=== PATIENT | male | born 1970 | race Caucasian/White ===

== ENCOUNTER 2016-11-30 17:28 | Emergency (ER) | payer BC ==
[2016-11-30] MEDS ORDERED: TETRACAINE 0.5% - 2 ML EYE DROPS EACH EYE ONE (17:43)
[2016-11-30] MEDS ORDERED: FLUORESCEIN 1 MG EYE STRIP RIGHT EYE ONE (17:45)
[2016-11-30] MEDS ORDERED: FLUORESCEIN 1 MG EYE STRIP ONE (17:46)
[2016-11-30] MEDS ORDERED: TETRACAINE 0.5% - 2 ML EYE DROPS ONE (17:47)
[2016-11-30 17:53] VITALS: RESP 16; TEMP 97.2
[2016-11-30] MEDS ORDERED: TOBRAMYCIN 0.3% - 5 ML EYE DROPS EACH EYE ONE (17:55)
--- NOTE | 2016-11-30 18:00 | PDOC ---
Eye Complaint HPI - General Chief Complaint: Eye Problem / Injury Stated Complaint: redness, pain right eye Date Seen by Provider: 11/30/16 Time Seen by Provider: 17:54 Source: POSITIVE: Patient Exam Limitations: POSITIVE: No limitations Nurse's Notes Reviewed & Considered: Yes - History of Present Illness Initial Comments: Patient comes in today complaining of right eye pain. 2 days ago patient was working in his yard developed itching watery eye yesterday it continued to increase with symptoms and became red and injected conjunctivae. He saw a provider at [facility] yesterday was started on sulfacetamide. He comes in today with increasing conjunctival redness, irritation, watery eye. He denies any fever chills sweats, nausea vomiting or diarrhea, no rashes. Have you received a tetanus shot in the past 10 years?: Yes Location: Right Eye Timing: REPORTS: Abrupt Duration: >24 hours Severity: Moderate Quality: REPORTS: Burning, "Pain", Itching Recent Injury: REPORTS: Possibly Associated Symptoms: REPORTS: Pain, Burning, Itching, Sensitivity to Light, Redness, Foreign Body Sensation Context: REPORTS: Eyes Washed at Scene, Other (Weekend and dust exposure.) Location at Time of Onset: REPORTS: Home Concurrent Injuries: REPORTS: Other (None) Modifying Factors: REPORTS: Nothing Exacerbates, Nothing Relieves Similar Symptoms Previously: No Recent Care Received: REPORTS: Recently Seen, Treated by MD Any Prior Injuries Related to Current Complaint?: No - Patient Home Medications Home Medications: Home Medications Sildenafil Citrate [Viagra] 1 tab PO PRN #9 tab 08/15/15 Alprazolam [Xanax] 1 tab PO PRN #10 tab 03/29/16 Escitalopram Oxalate [Lexapro] 10 mg PO DAILY #30 tab 09/30/16 Atorvastatin Calcium [Lipitor] 1 tab PO DAILY #30 tab 11/04/16 - Patient Allergies Allergies/Adverse Reactions: Allergies Allergy/AdvReac Type Severity Reaction Status Date / Time No Known Drug Allergies Allergy NOT Verified 11/30/16 17:43 APPLICABLE Past Medical History - heen HEENT History: Denies History, Other (please comment) Additional HEENT History: tonsillectomy Cardiovascular History: Hyperlipidemia Respiratory History: Other (please comment) Additional Respiratory History: environmental allergies. sinus infection. sinus surgery Gastrointestinal History: Other (please comment) Additional Gastrointestinal History: hernia repair Genitourinary History: Denies History Endocrine History: Denies History Musculoskeletal History: Back Pain, Other (please comment) Additional Musculoskeletal History: back surgery Neurological History: Denies History Blood Disorders: Denies History Psychiatric History: Denies History History of Sexually Transmitted Diseases: No Cancer History: Denies History In Past Year Been Physically Harmed or Verbally Threatened: No History of MDRO: No History of Other Communicable Diseases: No Tobacco Use: Never Smoker Alcohol Use: Rarely Substance Use Type: None Previous Surgical History: Yes Type / Date of Surgery: sinus. back. tonsils. hernia Anesthesia Reactions: No Significant Family History: No pertinent family hx ROS - Limitations ROS Limitations: No Limitations Constitution: REPORTS: Denies Symptoms Cardiovascular: REPORTS: Denies Cardiac Symptoms Respiratory: REPORTS: Denies Resp Symptoms Neurological: REPORTS: Denies Neuro Symptoms Gastrointestinal: REPORTS: Denies GI Symptoms Endocrine: REPORTS: Denies Symptoms Musculoskeletal: REPORTS: Denies MS Symptoms Genitourinary: REPORTS: Denies Symptoms Eyes: REPORTS: Eye Pain, Red Eyes, Itching Eyes ENT: REPORTS: Denies Symptoms Skin: REPORTS: Denies Skin Symptoms Lympathic: REPORTS: Denies Lympathic Symptoms Immunologic: POSITIVE: Denies Symptoms Psychiatric: POSITIVE: Denies Psych Symptoms Eye Complaint Physical Exam - General Appearance General Appearance: POSITIVE: Alert, Cooperative, No Evidence of Trauma - Visual Acuity / Pupil Size Pupil Size: 4 mm: Bilateral - HEENT Head / Face: POSITIVE: Atraumatic, Normal Inspection, No Facial Swelling Eyes: POSITIVE: PERRL, EOM's Intact, Eyelids Uninjured, No Nystagmus, No Globe Trauma, Sclera Normal, Conjunctivae (red), Corneal Abrasion, Fluorescein Dye Uptake (6 o'clock position consistent with abrasion on the cornea.) Ears: POSITIVE: Ears Normal Inspection, Auricle Normal Nose: POSITIVE: Inspection Normal, No Apparent Trauma, Nares Normal, No CSF Leak Oropharynx: POSITIVE: External Inspection Nml, Pharynx Inspect. Nml, Airway Intact, Voice Normal, Moist Mucous Membranes, Lips Normal, No Drooling - Skin Skin: POSITIVE: Normal Color, No Skin Rash Eye Complaint Progress - Patient's Progress Status: POSITIVE: Improved MDM / ED Course: Patient was examined. He received tetracaine enforcing dye to his right eye. Slit lamp examination shows a very small corneal abrasion at the 6 o'clock position on the outer margin of the iris. Inversion of his upper eyelid shows no foreign bodies present. Next Assessment: Corneal abrasion with conjunctivitis. Plan: Discontinue sulfacetamide. Begin tobramycin eyedrops 2 drops every 6 hours. Follow-up with ophthalmology. - Consult Counseled: POSITIVE: Patient, RE: DX, RE: Need for F/U Patient Care Time - Estimated PCT Patient Care Time (In Minutes): 10 Vital Signs - Recent Vital Signs Vital Signs: Vital Signs (Last 8 hours) Temp Pulse Resp BP Pulse Ox 11/30/16 17:36 97.2 F 67 16 103/82 94 Discharge Clinical Impression: Corneal abrasion, Conjunctivitis Condition: Stable Patient Instructions Given at Discharge: Corneal Abrasion (ED), Conjunctivitis (ED)
== END 2016-11-30 18:18 | disposition home or self-care (01) ==
LOC: ER 17:28
DX: S05.01XA Injury of conjunctiva and corneal abrasion without foreign body, right eye, initial encounter (principal); H10.31 Unspecified acute conjunctivitis, right eye
CPT/HCPCS: 99282

== ENCOUNTER 2017-09-08 20:42 | Observation (INO) ==
[2017-09-08] MEDS ORDERED: Sodium Chloride 0.9% 1,000 ML PRIMARY IV ONE (20:56)
[2017-09-08] MEDS ORDERED: NORMAL SALINE 10 ML SYRINGE FLUSH IVP PRN ×2 (20:56→22:07)
[2017-09-08 21:01] LABS: BASOPHILS # (AUTO) 0.03 10*3/UL; BASOPHILS % (AUTO) 0.3 % (0-1); EOSINOPHILS # (AUTO) 0.27 10*3/UL; EOSINOPHILS % (AUTO) 2.7 % (0-8); Hematocrit [HCT] 46.5 % (42.0-52.0); Hemoglobin [HGB] 16.3 g/dL (14.0-18.0); LYMPHOCYTES # (AUTO) 2.68 10*3/uL; MEAN CORPUSCULAR HEMOGLOBIN 29.7 PG (27-31); MEAN CORPUSCULAR HGB CONC 35.1 g/dL (33-37); MEAN CORPUSCULAR VOLUME 84.7 FL (80-90); MEAN PLATELET VOLUME 11.8 FL (7.4-12.2); MONOCYTES # (AUTO) 1.47 10*3/UL (0.3-0.8); MONOCYTES % (AUTO) 14.9 % (5-15); NEUTROPHILS # (AUTO) 5.35 10*3/UL; NEUTROPHILS % (AUTO) 54.5 % (50-80); RED BLOOD COUNT 5.49 10^6/uL (4.70-6.10)
[2017-09-08 21:02] LABS: PLATELET MORPHOLOGY COMMENT NORMAL MORPHOLOGY (NORM); RBC MORPHOLOGY COMMENT NORMAL MORPHOLOGY (NORM); WBC MORPHOLOGY COMMENT NORMAL MORPHOLOGY (NORM)
[2017-09-08 21:07] LABS: BLOOD UREA NITROGEN 14 mg/dL (7-22); BUN/CREATININE RATIO 15.55 (6-20); SERUM ALBUMIN 4.2 g/dL (3.5-4.8)
--- NOTE | 2017-09-08 21:07 | EKG ---
[address] [address] Measurements Intervals [place] Rate: 56 P: 20 AR: 155 QRS: 12 QRSD: 83 T: 30 QT: 392 QTc: 384 Interpretive Statements SINUS BRADYCARDIA NONSPECIFIC T-WAVE ABNORMALITY No previous ECG available for comparison Electronically Signed On 09-09-17 18:06:36 MST by Tejas Butler [email or web address]
--- NOTE | 2017-09-08 21:58 | PDOC ---
Chest Pain HPI - General Chief Complaint: Chest Pain Stated Complaint: CHEST PAIN Date Seen by Provider: 09/08/17 Time Seen by Provider: 20:45 Source: Patient, EMS Exam Limitations: POSITIVE: No limitations Treatment Prior to Arrival: REPORTS: Nitroglycerin, Oxygen, Aspirin Nurse's Notes Reviewed & Considered: Yes EMS Report Reviewed & Considered: Verbal - History of Present Illness Initial Comments: The patient is a 47-year-old male who arrives by ambulance from one of the [facility]. 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 He states he has some history of GERD but never had persistent pain like this. His pain was in the substernal area and radiated into the right subscapular area. Patient contacted the [facility] ambulance service, who administered 4 baby aspirin and some nitroglycerin and oxygen. The [facility] ambulance service then contacted the [place] ambulance service, who intercepted them at [facility]. Patient states that he achieved good relief following nitroglycerin and aspirin as above. Upon presentation to the emergency room patient's pain has resolved. Patient rated the intensity of his pain as a 9 on a scale of 10. Patient states his father at age 52 of a myocardial infarction. Patient does not smoke. He has a history of hypercholesterolemia and depression. The [place] paramedics telemetered an electrocardiogram from the field prior to arrival, and this electrocardiogram was felt to be normal. 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) Severity: Severe Gone now, lasted (minutes):: 75 Context: REPORTS: Other (At work) Quality: REPORTS: Aching, "Pain" Radiation: REPORTS: Shoulder (R) Associated Symptoms: DENIES: Nausea, Vomiting, Diaphoresis, Shortness of Breath , Hurts to Breathe, Productive Cough (blood), Productive Cough (sputum), Weakness, Dizziness Modifying Factors: improves with: None Reported, Nitroglycerin (Relieved after taking nitroglycerin per paramedics), Oxygen, Aspirin Similar Symptoms Previously: No Recently seen/treated/hospitalized: No Any Prior Injuries Related to Current Complaint?: No - Patient Home Medications Home Medications: Home Medications Ibuprofen 800 mg PO TID #60 tab 03/19/17 sildenafil 100 mg tablet 100 mg PO PRN #9 tab 05/13/17 atorvastatin 20 mg tablet 20 mg PO DAILY #90 tab 06/04/17 escitalopram 10 mg tablet 10 mg PO DAILY #90 tab 06/04/17 hydrocodone 5 mg-acetaminophen 300 mg tablet 1 tab PO Q4H PRN #20 tab 06/04/17 cyclobenzaprine 10 mg tablet 10 mg PO Q8H #20 tab 07/15/17 - Patient Allergies Allergies/Adverse Reactions: Allergies 3 Allergy/AdvReac Type Severity Reaction Status Date / Time No Known Drug Allergies Allergy NOT Verified 09/08/17 20:44 APPLICABLE Past Medical History - heen HEENT History: Denies History, Other (please comment) Additional HEENT History: tonsillectomy Cardiovascular History: Hyperlipidemia Respiratory History: Other (please comment) Additional Respiratory History: environmental allergies. sinus infection. sinus surgery Gastrointestinal History: Other (please comment) Additional Gastrointestinal History: hernia repair Genitourinary History: Denies History Endocrine History: Denies History Musculoskeletal History: Back Pain, Other (please comment) Additional Musculoskeletal History: back surgery Neurological History: Denies History Blood Disorders: Denies History Psychiatric History: Denies History History of Sexually Transmitted Diseases: No Cancer History: Denies History History of MDRO: No History of Other Communicable Diseases: No Alcohol Use: Rarely In the Past 12 Months, Have Used or Abuse Any Substance: None Previous Surgical History: Yes Type / Date of Surgery: sinus. back. tonsils. hernia Anesthesia Reactions: No Significant Family History: No pertinent family hx Past Medical History Reviewed: Reviewed - No Changes ROS - Limitations ROS Limitations: No Limitations Constitution: REPORTS: Denies Symptoms Cardiovascular: REPORTS: Chest Pain Respiratory: REPORTS: Denies Resp Symptoms Neurological: REPORTS: Denies Neuro Symptoms Gastrointestinal: REPORTS: Denies GI Symptoms Endocrine: REPORTS: Denies Symptoms Musculoskeletal: REPORTS: Denies MS Symptoms Genitourinary: REPORTS: Denies Symptoms Eyes: REPORTS: Denies Symptoms ENT: REPORTS: Denies Symptoms Skin: REPORTS: Denies Skin Symptoms Lympathic: REPORTS: Denies Lympathic Symptoms Immunologic: POSITIVE: Denies Symptoms Psychiatric: POSITIVE: Denies Psych Symptoms Chest Pain PE - General Appearance General Appearance: REPORTS: Alert, Cooperative, No Acute Distress, No Evidence of Trauma - HEENT HEENT: POSITIVE: Head Inspection Nml, Eyes Inspection Nml, Ears Inspection Nml, Nose Inspection Nml, Oral/Dental Inspect. Nml, Pharynx Inspect. Nml, PERRL, EOMI - Neck Neck: REPORTS: Normal Inspection, No Carotid Bruit - Respiratory Respiratory: REPORTS: No Respiratory Distress, Breath Sounds Normal, Chest Non- Tender - Cardiovascular Cardiovascular: REPORTS: Regular Rate and Rhythm, Heart Sounds Normal, Equal Pulses, Strong Pulses, No Murmur, No Gallop, No Friction Rub, No JVD Peripheral Pulses: Radial (R): 2+, Radial (L): 2+ - Abdomen Abdomen: Soft: (All Quadrants), Normal Bowel Sounds: (All Quadrants), Denies Tenderness: (All Quadrants), No Splenomegaly: (All Quadrants), No Hepatomegaly: (All Quadrants), No Guarding: (All Quadrants), No Rebound: (All Quadrants), No Palpable Pulse: (All Quadrants), No Palpabale Mass: (All Quadrants), No Distention: (All Quadrants), No Rigidity: (All Quadrants) - Skin Skin: REPORTS: Intact, Normal For Race, Warm, Dry, No Rash - Extremities Extremity: Non-Tender: (All Extremities), Normal ROM: (All Extremities), Normal Inspection: (All Extremities) - Neurological / Psychological Neurological: POSITIVE: Affect Apporpriate, 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 X3, 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 As Tested, Motor Normal, Sensation Normal Images - Complete Complete: 1 - Area described chest pain 2 - Radiation into right subscapular area Chest Pain Progress - Results Reviewed by me Xrays/CTs/US Reviewed by me: Yes Discussed with Radiologist: No Radiology Findings: Portable chest x-ray normal by my interpretation; radiologist interpretation pending Lab Results Reviewed by Me: Yes (d-dimer negative; troponin negative) CBC and BMP: 09/08/17 20:10 09/08/17 20:10 EKG Interpreted/Reviewed By Me:: Yes (normal) EKG Interpretation:: POSITIVE: Normal Sinus Rhythm, Normal Rate, Normal Intervals, Normal Sanders, Normal QRS, Abnormal EKG, Repeat EKG (EKG done in the field and repeat EKG upon arrival to the emergency room compared; both felt to be normal), Previous EKG Reviewed - Patient's Progress Pain Medication Addressed: POSITIVE: Yes (Nitroglycerin as above) School/Work Release Addressed: POSITIVE: Not Applicable Re-Examine Time: 21:45 Re-Examine Comment: Patient advised of his chest x-ray, electrocardiogram and laboratory values. Options for further evaluation and treatment discussed. Patient and quite concerned, and patient does have a strong family history of heart problems. Patient admitted for further evaluation and treatment per hospitalist. Status: POSITIVE: Improved, Re-Examined Quality Measure Initiative: CP/AMI: POSITIVE: EKG, ASA - Consult Consult (If Yes, Name of Consulting MD & Time Called): Yes (Dr. Gray, hospitalist, [id number]) Consulting MD will see pt:: POSITIVE: [facility] [place] Admit Counseled: POSITIVE: Patient, Family, RE: Lab Results, RE: Radiology Results, RE : DX, RE: Need for F/U Patient Care Time - Estimated PCT Patient Care Time (In Minutes): 45 Vital Signs - Recent Vital Signs Vital Signs: Blood pressure 111/65, heart rate 67, respiratory rate 18, temperature 98.6F, oxygen saturation on room air 96%. Discharge Clinical Impression: Chest pain Discharge Disposition: Admit to Inpatient Condition: Good Follow Up With: OH RIVERA FNP [Primary Care Provider] - Date Decision to Admit to Inpatient: 09/08/17 Time Decision to Admit to Inpatient: 21:45
--- NOTE | 2017-09-08 22:01 | DI ---
AP CHEST X-RAY, 09/08/2017 8:56 PM : Clinical History: Chest pain. Previous Exam: 07/15/2017. There is no acute soft tissue or bony abnormality. Heart size is normal. Lungs are clear. Mediastinal structures are normal. There are no pulmonary nodules. Reading: Normal chest x-ray. There has been no significant interval change.
[2017-09-08] MEDS ORDERED: NITROGLYCERIN 0.4 MG SL TAB (BOTTLE OF 3) SL PRN (22:07)
[2017-09-08] MEDS ORDERED: LIDOCAINE W/ SODIUM BICARB 0.5 ML SYR SUBD PRN (22:07)
[2017-09-08] MEDS ORDERED: CALCIUM CARBONATE 500 MG (TUMS) CHEWABLE TABLET PO PRN (22:07)
[2017-09-08] MEDS ORDERED: HYDROcodone-APAP 5 MG -325 MG TABLET PO PRN (22:15)
--- NOTE | 2017-09-08 22:15 | PDOC ---
HPI - History of Present Illness Date of Service: 09/08/17 Time of Service: 10:40 Chief Complaint: Chest pain History of Present Illness: This very pleasant 47-year-old male with a history of hypercholesterolemia and family history of coronary artery disease who presents with acute onset of chest pain at about 6:30 tonight as he was [place] today. He stated it came on suddenly, was substernal, and was pressure-like in sensation. They transferred him via ambulance, gave him 4 aspirins, and nitroglycerin and his pain resolved by the time he got to the emergency room. He's never had anything like this happen before. He denies any nausea, vomiting , or diaphoresis with the pain. He did not have any shortness of breath. He states it was 2-1/2 hours after his last meal. He infrequently gets heartburn, and when he does Tums usually relieves it. He tried antacids tonight without any help. Patient states that he has a positive family history of heart disease , he does not smoke, he has high cholesterol, does not have hypertension and does not have diabetes. Resting EKG showed normal sinus rhythm to sinus bradycardia. There is no positional component to the chest pain. He does not have anxiety. Past Medical History Medical History: 1. Hypercholesterolemia. 2. Depression, well controlled on Lexapro. 3. Occasional back pain with history of back surgery 2. Surgical History: History of back surgery 2. History of sinus surgery. Status post inguinal hernia repair. Status post rotator cuff repair (~2014). Status post tonsillectomy Pertinent Family History: Significant for coronary artery disease, his father had his first heart attack at age 37 and in his 50s. Past Social History: Does not smoke. for over 20 years. Has 2 healthy children. Works at the [employer] near [place]. Does not drink alcohol. Tobacco Use: Never Smoker In the Past 12 Months, Have Used or Abuse Any of the Following Substance: None Alcohol Use: None Medication / Allergies Home Medications: Home Medications 3 Medication Instructions Recorded Confirmed Type Ibuprofen 800 mg PO TID #60 tab 03/19/17 07/15/17 Clinic atorvastatin 20 mg tablet 20 mg PO DAILY #90 tab 06/04/17 09/08/17 Rx escitalopram 10 mg tablet 10 mg PO DAILY #90 tab 06/04/17 09/08/17 Rx cyclobenzaprine 10 mg tablet 10 mg PO Q8H #20 tab 07/15/17 07/15/17 Rx Allergies/Adverse Reactions: Allergies 3 Allergy/AdvReac Type Severity Reaction Status Date / Time No Known Drug Allergies Allergy NOT Verified 09/08/17 20:44 APPLICABLE Review of Systems - Review of Systems All Systems: Reviewed & No Additional Complaints Except as Stated (I did a 12 point review systems and it was negative other than that discussed in history present illness. There are some exceptions noted below.) - Genitourinary Genitourinary: REPORTS: Other (History of kidney stones.) Exam - - Exam: Vital Signs (24 hrs) Temp Pulse Pulse Pulse Resp BP BP 09/08/17 22:15 98 F 62 18 108/56 09/08/17 20:42 98.3 F 67 72 18 120/63 Pulse Ox 09/08/17 22:15 98 09/08/17 20:42 96 - General General Appearance: No Acute Distress, Cooperative - Head Head Exam: Normal Inspection, Normocephalic, Atraumatic - Eye Eye Exam: POSITIVE: No Scleral Icterus - ENT ENT Exam: POSITIVE: Mucous Membranes Moist - Neck Neck Exam: Normal Inspection, No Tenderness, No Lymphadenopathy, No Thyromegaly , JVP is not Raised - Respiratory Respiratory Exam: POSITIVE: Clear to Auscultation - Bilaterally, Breathing Non Labored, Normal to Percussion and Palpation - Cardiovascular Cardiovascular Exam: POSITIVE: RRR, No Murmur, No Clicks, No Gallops, No Rubs, No JVD Additional Cardiovascular Details: Chest pain is not reproducible with palpation. - GI/Abdominal GI/Abdominal Exam: POSITIVE: Normal Bowel Sounds, Non Tender, Non Distended, Soft - Rectal Rectal Exam: POSITIVE: Deferred - External Exam: POSITIVE: Deferred Exam: POSITIVE: Deferred - Extremities Extremities Exam: POSITIVE: No Clubbing Present, No Edema Present, No Cyanosis Present - Back Back Exam: POSITIVE: Normal Inspection, No CVA Tenderness - Neurological Neurological Exam: POSITIVE: Alert, Oriented x 3, No Facial Droop, Speech Intact / Clear, Moves All Extremities Equally - Psychiatric Psychiatric Exam: POSITIVE: Normal Affect, Normal Mood - Integumentary Integumentary Exam: POSITIVE: Normal Color, Warm, Dry, Intact Results - Labs CBC and BMP: 09/08/17 20:10 09/08/17 20:10 Additional Lab Results: Laboratory Results 09/08/17 09/08/17 09/08/17 Range/Units 20:10 20:10 20:10 WBC 9.84 (4.8-10.8) 10^3/uL RBC 5.49 (4.70-6.10) 10^6/uL Hgb 16.3 (14.0-18.0) g/dL Hct 46.5 (42.0-52.0) % MCV 84.7 (80-90) FL MCH 29.7 (27-31) PG MCHC 35.1 (33-37) g/dL RDW Std Deviation 41.0 (39-50) fL RDW Coeff of Gennaro 13.3 (11.5-14.5) % Plt Count 201 (140-350) 10*3/uL MPV 11.8 (7.4-12.2) FL Immature Gran % (Auto) 0.4 (0-5) % Neut % (Auto) 54.5 (50-80) % Lymph % (Auto) 27.2 (10-50) % Newberry % (Auto) 14.9 (5-15) % Eos % (Auto) 2.7 (0-8) % Baso % (Auto) 0.3 (0-1) % Immature Gran # (Auto) 0.04 10*3/UL Neut # (Auto) 5.35 10*3/UL Lymph # (Auto) 2.68 10*3/uL Newberry # (Auto) 1.47 H (0.3-0.8) 10*3/UL Eos # (Auto) 0.27 10*3/UL Baso # (Auto) 0.03 10*3/UL WBC Morphology Comment Normal morphology (NORM) Plt Morphology Comment Normal morphology (NORM) RBC Morph Comment Normal morphology (NORM) D-Dimer 0.39 (0.00-0.59) mg/L Sodium 141 (135-145) meq/L Potassium 3.7 L (3.8-5.2) meq/L Chloride 103 (98-112) meq/L Carbon Dioxide 26 (23-33) meq/L Anion Gap 12 (5-20) BUN 14 (7-22) mg/dL Creatinine 0.9 (0.70-1.50) mg/dL Estimated GFR > 60 (>60 ml/min/1.73m(2)) BUN/Creatinine Ratio 15.55 (6-20) Glucose 98 (78-110) mg/dL Calculated Osmolality 292.0 (267-292) mOsm/kg Calcium 9.4 (8.7-10.7) mg/dL Total Bilirubin 0.3 (0.3-1.2) mg/dL AST 36 (21-57) IU/L ALT 67 (21-72) IU/L Alkaline Phosphatase 55 (38-126) IU/L CK-MB (CK-2) (0.00-5.00) NG/ML Troponin I (< 0.040) ng/mL Total Protein 6.6 (6.1-8.0) g/dL Albumin 4.2 (3.5-4.8) g/dL Globulin 2.4 L (2.50-4.10) g/dL Albumin/Globulin Ratio 1.70 (1.3-2.0) mg/g 09/08/17 Range/Units 20:10 WBC (4.8-10.8) 10^3/uL RBC (4.70-6.10) 10^6/uL Hgb (14.0-18.0) g/dL Hct (42.0-52.0) % MCV (80-90) FL MCH (27-31) PG MCHC (33-37) g/dL RDW Std Deviation (39-50) fL RDW Coeff of Gennaro (11.5-14.5) % Plt Count (140-350) 10*3/uL MPV (7.4-12.2) FL Immature Gran % (Auto) (0-5) % Neut % (Auto) (50-80) % Lymph % (Auto) (10-50) % Newberry % (Auto) (5-15) % Eos % (Auto) (0-8) % Baso % (Auto) (0-1) % Immature Gran # (Auto) 10*3/UL Neut # (Auto) 10*3/UL Lymph # (Auto) 10*3/uL Newberry # (Auto) (0.3-0.8) 10*3/UL Eos # (Auto) 10*3/UL Baso # (Auto) 10*3/UL WBC Morphology Comment (NORM) Plt Morphology Comment (NORM) RBC Morph Comment (NORM) D-Dimer (0.00-0.59) mg/L Sodium (135-145) meq/L Potassium (3.8-5.2) meq/L Chloride (98-112) meq/L Carbon Dioxide (23-33) meq/L Anion Gap (5-20) BUN (7-22) mg/dL Creatinine (0.70-1.50) mg/dL Estimated GFR (>60 ml/min/1.73m(2)) BUN/Creatinine Ratio (6-20) Glucose (78-110) mg/dL Calculated Osmolality (267-292) mOsm/kg Calcium (8.7-10.7) mg/dL Total Bilirubin (0.3-1.2) mg/dL AST (21-57) IU/L ALT (21-72) IU/L Alkaline Phosphatase (38-126) IU/L CK-MB (CK-2) 1.47 (0.00-5.00) NG/ML Troponin I < 0.012 (< 0.040) ng/mL Total Protein (6.1-8.0) g/dL Albumin (3.5-4.8) g/dL Globulin (2.50-4.10) g/dL Albumin/Globulin Ratio (1.3-2.0) mg/g - EKG Data -: EKG Interpreted by Me Rate: Normal EKG Shows Normal: Sinus Rhythm - EKG Data EKG Interpretation: Other (The EKG reading read out sinus bradycardia, but I calculated a rate of 60.) - Imaging Status: Image Reviewed by Me (Chest x-ray appears negative on my view for acute cardiopulmonary disease process.) Assessment and Plan - Patient Problems (1) Hypercholesterolemia Current Visit: Yes Status: Acute Code(s): E78.00 - Pure hypercholesterolemia , unspecified (2) Chest pain Current Visit: Yes Status: Acute Code(s): R07.9 - Chest pain, unspecified - Assessment / Plan Additional Assessment/Plan Details: Plan: 1. Do serial enzymes and EKG if necessary 2. Aspirin/beta cynthia/Lovenox is indicated. For now, baby aspirin. Does not appear to be unstable angina so hold off on beta cynthia and Lovenox at this time 3. We'll have the patient do a stress test [we will do physical stress test, with radiotracer diet.] 4. Proton pump inhibitor if negative stress test workup, a trial of proton pump inhibitor may be necessary 5. Nitroglycerin when necessary for chest pain 6. Morphine if necessary via IV, but I will order only if requested. 7. Oxygen if necessary 8. If testing indicates further need for evaluation, discussion with cardiology. If testing is negative for myocardial infarction and no further indication for coronary artery disease, consider outpatient workup for GI source , pulmonary source, or other. Good to see the d-dimer is negative. 9. Check lipid panel and also check TSH and free T4. 10. Plan above was discussed with patient and his , and they agreed. Likely will proceed with resting images tomorrow. I discussed with them that my partner, Dr. Laurent, will take over tomorrow.
[2017-09-08] MEDS: CYCLOBENZAPRINE 10 MG TABLET PO SCH (23:20)
[2017-09-08 23:38] LABS: URINE SAMPLE TYPE VOIDED SPECIMEN; URINE SPECIFIC GRAVITY - MAN 1.024
[2017-09-08 23:41] LABS: AMPHETAMINE SCREEN NEGATIVE (NEG); CANNABINOID SCREEN,URINE NEGATIVE (NEG); COCAINE SCREEN NEGATIVE (NEG); METHADONE URINE SCREEN NEGATIVE (NEG); METHAMPHETAMINES SCREEN,URINE NEGATIVE (NEG); OPIATE SCREEN,URINE NEGATIVE (NEG)
[2017-09-09] MEDS: CYCLOBENZAPRINE 10 MG TABLET PO SCH (07:27)
[2017-09-09 08:27] LABS: CHOL/HDL RATIO 5.15 RATIO (0-4.0)
--- NOTE | 2017-09-09 11:07 | STRESSTEST ---
Interpretive Statements patient exercised according to Gallo protocol for 9.5 min. his baseline BP was 126/84, heart rate was 65 EKG showed sinus bradycardia, once patient reached target heart rate he was injected with cardiolyte and exercised more than a min post inejction. test was stopped because of fatigue. maximum BP was 182/78, maximum heart rate was 170 which is 98% of the predicted. EKG did not show changes in the exercise part but EKG changes noted after 6 min in the recovery phase patient had frequent ectoptics, and ST depression noted in V4-V6 and inferior leads. , Conclsuion abnormal stress test await nuclear scan results. [email or web address]
--- NOTE | 2017-09-09 11:22 | PDOC(PROG) ---
Date and Time of Service: 09/09/2017 11:23 AM Interval History: Subjective Patient came into the hospital history of chest pain he was at work and then he started to have pain felt in the anterior chest went to the back squeezing there was no radiation elsewhere was no sweating no shortness of breath. They called the medics for him, they gave him aspirin then he was transferred to another ambulance and they gave 1 dose of nitroglycerin and he said by the time they gave the Nitro the pain started to go away then he was brought to the ER and by the time he came in his pain was resolved and he was admitted. Today he is denying pain. Objective : Data - Labs CBC and BMP: 09/08/17 20:10 09/08/17 20:10 Objective : Exam - General General Appearance: No Acute Distress, Cooperative - Head Head Exam: Normal Inspection, Atraumatic - Eye Eye Exam: Normal Appearance - ENT ENT Exam: Normal Exam - Neck Neck Exam: Normal Inspection - Respiratory Respiratory Exam: Clear to Auscultation - Bilaterally - Cardiovascular Cardiovascular Exam: RRR - GI/Abdominal GI/Abdominal Exam: Normal Bowel Sounds, Non Tender, Non Distended, Soft, No Organomegaly - Rectal Rectal Exam: Deferred - External Exam: Deferred - Extremities Extremities Exam: Normal Inspection - Back Back Exam: Normal Inspection - Neurological Neurological Exam: Alert, Oriented x 3, CN II-XII Intact, No Facial Droop, Speech Intact / Clear, Moves All Extremities Equally - Psychiatric Psychiatric Exam: Normal Affect - Integumentary Integumentary Exam: Normal Color Assessment and Plan - Patient Problems (1) Chest pain Current Visit: Yes Status: Acute Comment: Atypical pain. His enzymes are negative. He had the first part of the Cardiolite stress test. He'll have the second tomorrow. He did not have EKG changes during the exercise part but later on during the resting phase we noticed ectopic beats, this was past 6 minutes recovery phase and also some ST depression in V5 to V6 and also in the inferior leads. He was asymptomatic. These improved later on. Continue aspirin. Code(s): R07.9 - Chest pain, unspecified (2) Hypercholesterolemia Current Visit: Yes Status: Acute Comment: Same med Code(s): E78.00 - Pure hypercholesterolemia, unspecified
[2017-09-09] MEDS: ASPIRIN 81 MG (BABY) CHEWABLE TABLET PO SCH (11:31)
[2017-09-09] MEDS: ESCITALOPRAM 10 MG TABLET PO SCH (11:31)
[2017-09-09] MEDS: ATORVASTATIN 20 MG TABLET PO SCH (20:49)
[2017-09-10] MEDS: ESCITALOPRAM 10 MG TABLET PO SCH (08:42)
[2017-09-10] MEDS: ASPIRIN 81 MG (BABY) CHEWABLE TABLET PO SCH (08:42)
--- NOTE | 2017-09-10 14:06 | DI ---
2 DAY GALLO STRESS & REST MYOCARDIAL PERFUSION SCANS, 09/09/2017-09/10/2017: Clinical History: Chest pain. Previous Exam: None at this facility. Monitoring Physician: Dr. Barrington Laurent. Dose: Stress dose: 29 mCi on 09/09/2017. Rest dose: 29 mCi on 09/10/2017. Quantitative Analysis: [employer] with low dose limited CT chest scan attenuation correctio n. Exam Quality: Excellent. Rejected Beats: Stress = 1%; Rest = 1%. HR: Stress = 60-66 b/m; Rest = 64-7 3 b/m. Left ventricular chamber sizes are normal at stress and rest. Transient ischemic dilatation ratio is 1.10 (normal Gallo TID <= 1.22; normal Lexiscan TID <= 1.33). Stress LVEF: 63%; rest LVEF: 75%. Both the attenuated and the non-attenuated scans show a reversible defect in the anteroapical segment syed cating ischemia corresponding to the vascular distribution of the distal third of the LAD. All other martin perfuse normally. There is very mild hypokinesis of the anteroapical segment at stress and this reverts to a normal pattern at rest. All other martin contract vigorously at stress and rest. There i s normal myocardial thickening at stress and rest. Limited CT scans of the heart show no coronary art ирина calcifications. There are no lung nodules or enlarged nodes. Readin. Normal stress and rest left ventricular chamber size. Transient ischemic dilatation ratio is norm al at 1.10. 2. Normal stress and rest LVEF values of 63% and 75%, respectively. The stress LVEF values is much l ower than the resting value and this may be indicative of more extensive disease than seen on the per fusion scans. 3. There is a reversible defect in the anteroapical segment indicating ischemia corresponding to the vascular territory of the distal third of the LAD. This same territory shows mild hypokinesis at str ess that reverts to normal wall motion at rest. All other martin perfuse and show vigorous contraction s at stress and rest. There is normal myocardial thickening at stress and rest. 4. The low dose stress and rest CT scans of the chest through the region of the heart show no coron marley calcifications. There are no pulmonary nodules or masses. There is no mediastinal or hilar adenop athy.
--- NOTE | 2017-09-10 15:26 | DCSUMMARY ---
Hospitalization Summary Admit Date: 09/08/2017 Discharge Date: 09/10/17 Hospital Course: Discharge diagnoses 1. Episode of chest pain resolved enzymes negative. Abnormal stress test 2. Reversible ischemia in the anteroapical area suggestive of distal LAD lesion 3. Hypercholesterolemia Hospital course This is a 47 years old male with medical history significant for history of hypercholesterolemia, history of coronary artery disease who presented to the hospital with acute chest pain on the day of the admission. The pain started all of a sudden was substernal and was pressure-like in sensation. They transferred him via ambulance, gave him 4 aspirin and nitroglycerin and his pain resolved by time he got to the emergency department. Never had this kind of pain before. There was no nausea, no vomiting or diaphoresis. There was no shortness of breath. Was admitted to the hospital by Dr. Gray please see his note. EKG showed sinus rhythm and sinus bradycardia. We did a stress test for him in the morning the EKG part of Cardiolite stress test did show some ST depression in V4 to V6 and also inferior leads and had also multiple ectopic beats. The nuclear scan did show reversible ischemia in the anteroapical area suggestive of the lesion in the distal third of LAD. Because of the findings I did speak with the Dr. Melendez who suggested transfer for an angiogram. The patient accepted transfer. They don't have beds yet if no beds available by tomorrow morning will be transferred in a.m. directly to the Warranty Coordinator. Discharge instruction Diet regular Activity as started on medications Active Medications Hydrocodone Bitart/Acetaminophen ([place] 5/325 Tab) 1 tab PO Q4H PRN PRN Reason: Pain Aspirin (Aspirin Chewable Tab) 81 mg PO DAILY [facility] Last Admin: 09/10/17 08:42 Dose: 81 mg Atorvastatin Calcium (Lipitor) 20 mg PO BEDTIME [facility] Last Admin: 09/09/17 20:49 Dose: 20 mg Calcium Carbonate (Tums) 1 - 2 tab PO QID PRN PRN Reason: Heartburn Escitalopram Oxalate (Lexapro) 10 mg PO DAILY [facility] Last Admin: 09/10/17 08:42 Dose: 10 mg Lidocaine HCl (Lidocaine Buffered Inj) 0.5 ml SUBD ONCE PRN PRN Reason: IV Starts Nitroglycerin (Nitrostat Sl 0.4mg Tab) 1 tab SL Q5M PRN PRN Reason: Chest Pain Sodium Chloride (Saline Flush) 5 - 20 ml IVP BID PRN PRN Reason: Flush Follow-up per [facility] post discharge. Condition at transfer was stable for transfer Exam - Vitals Vital Signs: Vital Signs Temperature 97.5 F Temperature Source Temporal Artery Scan Pulse Rate [Apical] 68 Pulse Rate [Telemetry] 60 Pulse Rate [Pulse Oximeter] 76 Pulse Rate 74 Respiratory Rate 18 Blood Pressure [Right Arm] 122/69 Blood Pressure 108/56 Pulse Ox 93 Oxygen Delivery Method Room Air Height 5 ft 10 in Weight 203 lb 6.4 oz - General General Appearance: No Acute Distress, Cooperative - Head Head Exam: Normal Inspection - Eye Eye Exam: POSITIVE: Normal Appearance - ENT ENT Exam: POSITIVE: Normal Exam - Neck Neck Exam: Normal Inspection - Respiratory Respiratory Exam: POSITIVE: Clear to Auscultation - Bilaterally - Cardiovascular Cardiovascular Exam: POSITIVE: RRR - GI/Abdominal GI/Abdominal Exam: POSITIVE: Normal Bowel Sounds, Non Tender, Non Distended, Soft, No Organomegaly - Rectal Rectal Exam: POSITIVE: Deferred - External Exam: POSITIVE: Deferred - Extremities Extremities Exam: POSITIVE: Normal Inspection - Back Back Exam: POSITIVE: Normal Inspection - Neurological Neurological Exam: POSITIVE: Alert, Oriented x 3, CN II-XII Intact, No Facial Droop, Speech Intact / Clear, Moves All Extremities Equally - Psychiatric Psychiatric Exam: POSITIVE: Normal Affect - Integumentary Integumentary Exam: POSITIVE: Normal Color Patient Problems - Patient Problem List (1) Chest pain Status: Acute Code(s): R07.9 - Chest pain, unspecified Category: Medical (2) Hypercholesterolemia Status: Acute Code(s): E78.00 - Pure hypercholesterolemia, unspecified Category: Medical
[2017-09-10] MEDS ORDERED: ACETAMINOPHEN 325 MG TABLET PO PRN (16:34)
[2017-09-10] MEDS: ATORVASTATIN 20 MG TABLET PO SCH (20:35)
[2017-09-11 05:34] VITALS: BP 100/74; RESP 18; TEMP 97.6; O2SAT 94
== END 2017-09-11 06:07 | disposition short-term general hospital (02) ==
LOC: MED/SURG 20:42 → ER 20:42
PROVIDERS: ADMIT Family Medicine; ATTEND Family Medicine